=== PATIENT | male | born 1970 | race Caucasian/White ===

== ENCOUNTER 2018-05-22 14:42 | Observation (INO) | payer OTHER ==
[2018-05-22] MEDS ORDERED: levETIRAcetam 1000MG/NACL 100 ML IV ONE (14:47)
[2018-05-22] MEDS ORDERED: NS 1,000 ML IV ONE ×2 (14:47→15:58)
--- NOTE | 2018-05-22 14:51 | EDPHY ---
H & P Time Seen by Provider: 05/22/18 14:49 HPI/ROS: HPI CHIEF COMPLAINT: Seizure x2. HISTORY OF PRESENT ILLNESS: 47-year-old male presents emergency room by EMS from his office where he had a witnessed generalized tonic-clonic seizure. 911 was called he then subsequently had another 30 sec generalized tonic-clonic seizure witnessed by EMS during transport. EMS reports a normal blood glucose of 96. He is currently postictal upon arrival to the emergency room however it is noted he is also tachycardic. The patient is confused. He also struck his head during his 1st seizure and has a right forehead hematoma. EMS reports he takes Keppra. Reported that he is compliant with this. Past Medical History: Seizures and neuropathy, hypertension Past Surgical History: Noncontributory Social History: Noncontributory Family History: Noncontributory ROS REVIEW OF SYSTEMS: Review of systems and history limited due to patient's mental state. Exam Constitutional confused, postictal, obese triage nursing summary reviewed, vital signs reviewed, awake/alert. Tachycardic in the 150s to 160s. Eyes normal conjunctivae and sclera, EOMI, PERRLA. Oropharynx: Tongue laceration present. HENT hematoma right forehead, moist mucus membranes, no epistaxis, neck supple / no meningismus, no raccoon eyes. Respiratory clear to auscultation bilaterally, normal breath sounds, no respiratory distress, no wheezing. Cardiovascular tachycardic, regular rhythm, no murmur, no edema, distal pulses normal. Gastrointestinal soft, non-tender, no rebound, no guarding, normal bowel sounds, no distension, no pulsatile mass. Genitourinary no CVA tenderness. Musculoskeletal no midline vertebral tenderness, full range of motion, no calf swelling, no tenderness of extremities, no meningismus, good pulses, neurovascularly intact. Skin pink, warm, & dry, no rash, skin atraumatic. Neurologic alert or x1 moves all 4 extremities equally, motor intact, sensory intact, CN II-XII intact, normal cerebellar, normal vision, normal speech. Psychiatric normal mood/affect. Heme/Lymph/Immune no lymphadenopathy. Differential Diagnosis: Includes but is not limited to epilepsy, generalized tonic-clonic seizure, postictal state, electrolyte disturbance, infection, intracranial bleed, skull fracture Medical Decision Making: Plan for this patient who sees twice, and is noted be tachycardic, IV establishment IV fluid bolus, check basic blood work, IV Keppra 1 g, CT scan head, CT cervical spine, chest x-ray re-evaluate. Re-evaluation: EKG interpretation by me on record in [employer] system. Impression time of EKG 1453, sinus tach 158, no ST elevation. CT scan head without contrast and CT cervical spine without contrast called to me by Dr. Morales. No acute intra cranial traumatic injury. There is a right forehead hematoma. No cervical spine fracture or intracranial bleed. 1720: Patient continues to improve mentally back to baseline. No confusion. Not postictal anymore. Did bite his tongue has tongue laceration that does not need to be repaired. Additionally the patient's heart rate was in the 150s to 160s when he got here however he slowly improving with IV fluids and IV Ativan. The patient is received 2 mg IV Ativan, 1 g of Keppra, 2 L of fluid his heart rate is currently 120. Improving Patient's mental state is improving. Given the patient had 2 seizures and possibly 1 unwitnessed here in the ER but appeared to be postictal for brief period time will plan on admitting for observation. I spoke with the hospitalist service Dr. Massey who agrees to admit. EKG interpretation by me on record in [employer] system. Impression time of EKG 1724, sinus tach, 118, any signs of acute ischemia. Q-waves noted V1 V2 V3 no ST elevation. 1737: Patient reports to me that he typically gets his health care at [facility]. I have asked for medical records from [facility]. As the patient has never been here before. I did re-evaluate him at 5:37 p.m. He is resting comfortably no complaints he states he feels much better. His current heart rate is 119. He has had no further seizure activity here in the emergency room. Plan for admission he received IV Keppra Dr. Massey consulted and agrees to admit. Source: Patient, EMS Constitutional: Initial Vital Signs Temperature (C) 36.7 C 05/22/18 14:50 Heart Rate 152 H 05/22/18 14:50 Respiratory Rate 26 H 05/22/18 14:50 Blood Pressure 130/93 H 05/22/18 14:50 O2 Sat (%) 92 05/22/18 14:50 O2 Delivery Mode Nasal Cannula O2 (L/minute) 2 Allergies/Adverse Reactions: No Known Allergies Allergy (Unverified 05/22/18 14:49) Home Medications: Medication Instructions Recorded Finasteride [Proscar 5 MG (*)] 5 mg PO DAILY 05/22/18 Losartan/Hydrochlorothiazide 1 tab PO DAILY 05/22/18 [Losartan-Hctz 100-25 mg Tab] Tamsulosin HCl [Flomax 0.4 MG (*)] 0.4 mg PO HS 05/22/18 levETIRAcetam [Keppra 500 mg (*)] 500 mg PO BID 05/22/18 Medical Decision Making - Diagnostics Imaging Results: Imaging Impressions Cervical Spine CT 05/22/18 14:47 Impression: 1. Right frontal scalp hematoma. 2. Normal calvarium and brain. 2. CT Cervical Spine Without Contrast History: Trauma. Fall. Seizure. Technique: Multi-slice ultrathin single breath-hold helical CT through the neck from the skull base through the thoracic inlet without contrast. Soft tissue and bone window evaluation is performed. Sagittal and coronal reconstructions are obtained. Dose reduction techniques were utilized. Findings: There is a small amount of motion artifact on the study. Alignment is anatomic. No fracture or dislocation is identified. Disk spaces are well maintained except for moderate narrowing of the C6-C7 disk space where there are both ventral and dorsal osteophytes and erosive change on either side of the disk space. Facets are normally aligned and are intact. The skull base - C1 and C1-C2 relationships are normally aligned. There is mild degenerative change of the joint between the anterior ring of C1 and the odontoid process. The odontoid process is intact. There is no evidence of a prevertebral or epidural hematoma. The cervical thoracic junction is normally aligned. Impression: 1. Nothing acute identified. 2. Moderate degenerative disk disease at C6-C7. If there is concern for instability, then consider lateral flexion-extension views, cervical fluoroscopy and/or cervical MRI. Results called to Dr. Dsouza at 3:51 PM. General information for patients regarding this examination can be found at [email or web address]. If you have questions or comments about this report, please contact me at [phone](hospital) or [phone] (cell). Chest X-Ray 05/22/18 14:47 Impression: Moderate cardiac enlargement. No acute abnormality identified. Head CT 05/22/18 14:47 Impression: 1. Right frontal scalp hematoma. 2. Normal calvarium and brain. 2. CT Cervical Spine Without Contrast History: Trauma. Fall. Seizure. Technique: Multi-slice ultrathin single breath-hold helical CT through the neck from the skull base through the thoracic inlet without contrast. Soft tissue and bone window evaluation is performed. Sagittal and coronal reconstructions are obtained. Dose reduction techniques were utilized. Findings: There is a small amount of motion artifact on the study. Alignment is anatomic. No fracture or dislocation is identified. Disk spaces are well maintained except for moderate narrowing of the C6-C7 disk space where there are both ventral and dorsal osteophytes and erosive change on either side of the disk space. Facets are normally aligned and are intact. The skull base - C1 and C1-C2 relationships are normally aligned. There is mild degenerative change of the joint between the anterior ring of C1 and the odontoid process. The odontoid process is intact. There is no evidence of a prevertebral or epidural hematoma. The cervical thoracic junction is normally aligned. Impression: 1. Nothing acute identified. 2. Moderate degenerative disk disease at C6-C7. If there is concern for instability, then consider lateral flexion-extension views, cervical fluoroscopy and/or cervical MRI. Results called to Dr. Dsouza at 3:51 PM. General information for patients regarding this examination can be found at [email or web address]. If you have questions or comments about this report, please contact me at (hospital) or [phone] (cell). - Data Points Laboratory Results: Laboratory Results 05/22/18 14:55 05/22/18 14:55 05/22/18 05/22/18 05/22/18 14:55 14:55 14:55 WBC RBC Hgb Hct MCV MCH MCHC RDW Plt Count MPV Neut % (Auto) Lymph % (Auto) Mathews % (Auto) Eos % (Auto) Baso % (Auto) Nucleat RBC Rel Count Absolute Neuts (auto) Absolute Lymphs (auto) Absolute Monos (auto) Absolute Eos (auto) Absolute Basos (auto) Absolute Nucleated RBC Immature Gran % Immature Gran # PT INR APTT Sodium 134 mEq/L L mEq/L (135-145) Potassium 4.0 mEq/L mEq/L (3.5-5.2) Chloride 97 mEq/L mEq/L (97-110) Carbon Dioxide 15 mEq/l L mEq/l (22-31) Anion Gap 22 mEq/L H mEq/L (6-14) BUN 10 mg/dL mg/dL (7-23) Creatinine 1.0 mg/dL mg/dL (0.7-1.3) Estimated GFR > 60 Glucose 105 mg/dL H mg/dL (70-100) Calcium 9.7 mg/dL mg/dL (8.5-10.4) Magnesium 2.1 mg/dL mg/dL (1.6-2.3) Total Bilirubin 0.8 mg/dL mg/dL (0.1-1.4) Conjugated Bilirubin 0.5 mg/dL mg/dL (0.0-0.5) Unconjugated Bilirubin 0.3 mg/dL mg/dL (0.0-1.1) AST 72 IU/L H IU/L (17-59) ALT 74 IU/L H IU/L (21-72) Alkaline Phosphatase 98 IU/L IU/L (38-126) POC Troponin I 0.00 ng/mL ng/mL (0.00-0.08) Total Protein 8.6 g/dL H g/dL (6.3-8.2) Albumin 5.1 g/dL H g/dL (3.5-5.0) Lipase 119 IU/L IU/L (23-300) Ethyl Alcohol < 10 mg/dL mg/dL (0-10) 05/22/18 05/22/18 14:55 14:55 WBC 12.50 10^3/uL H 10^3/uL (3.80-9.50) RBC 5.07 10^6/uL 10^6/uL (4.40-6.38) Hgb 16.2 g/dL g/dL (13.7-17.5) Hct 46.3 % % (40.0-51.0) MCV 91.3 fL fL (81.5-99.8) MCH 32.0 pg pg (27.9-34.1) MCHC 35.0 g/dL g/dL (32.4-36.7) RDW 12.9 % % (11.5-15.2) Plt Count 279 10^3/uL 10^3/uL (150-400) MPV 8.7 fL fL (8.7-11.7) Neut % (Auto) 53.7 % % (39.3-74.2) Lymph % (Auto) 33.9 % % (15.0-45.0) Mathews % (Auto) 9.8 % % (4.5-13.0) Eos % (Auto) 1.1 % % (0.6-7.6) Baso % (Auto) 0.9 % % (0.3-1.7) Nucleat RBC Rel Count 0.0 % % (0.0-0.2) Absolute Neuts (auto) 6.70 10^3/uL H 10^3/uL (1.70-6.50) Absolute Lymphs (auto) 4.24 10^3/uL H 10^3/uL (1.00-3.00) Absolute Monos (auto) 1.23 10^3/uL H 10^3/uL (0.30-0.80) Absolute Eos (auto) 0.14 10^3/uL 10^3/uL (0.03-0.40) Absolute Basos (auto) 0.11 10^3/uL H 10^3/uL (0.02-0.10) Absolute Nucleated RBC 0.00 10^3/uL 10^3/uL (0-0.01) Immature Gran % 0.6 % % (0.0-1.1) Immature Gran # 0.08 10^3/uL 10^3/uL (0.00-0.10) PT 13.1 SEC SEC (12.0-15.0) INR 0.97 (0.83-1.16) APTT 27.0 SEC SEC (23.0-38.0) Sodium Potassium Chloride Carbon Dioxide Anion Gap BUN Creatinine Estimated GFR Glucose Calcium Magnesium Total Bilirubin Conjugated Bilirubin Unconjugated Bilirubin AST ALT Alkaline Phosphatase POC Troponin I Total Protein Albumin Lipase Ethyl Alcohol Medications Given: Acetaminophen (Tylenol) 650 mg PO Q6 PRN PRN Reason: Pain, Mild/Fever, Can Take PO Stop: 11/18/18 17:26 Last Admin: 05/22/18 17:51 Dose: 650 mg Sodium Chloride (Ns) 1,000 mls @ 75 mls/hr IV CONT DANIA Stop: 11/18/18 17:29 Last Admin: 05/22/18 20:30 Dose: 1,000 mls Levetiracetam (Keppra) 750 mg PO BID DANIA Stop: 11/18/18 20:59 Last Admin: 05/22/18 20:54 Dose: 750 mg Melatonin (Melatonin) 3 mg PO HS DANIA Stop: 11/18/18 20:59 Last Admin: 05/22/18 20:55 Dose: 3 mg Tamsulosin HCl (Flomax) 0.4 mg PO HS DANIA Stop: 11/18/18 20:59 Last Admin: 05/22/18 20:55 Dose: 0.4 mg Discontinued Medications Sodium Chloride (Ns) 1,000 mls @ 0 mls/hr IV EDNOW ONE; Wide Open PRN Reason: Protocol Stop: 05/22/18 14:48 Last Admin: 05/22/18 15:07 Dose: 1,000 mls Levetiracetam (Keppra (Premix)) 100 mls @ 400 mls/hr IV EDNOW ONE Stop: 05/22/18 15:01 Last Admin: 05/22/18 15:15 Dose: 100 mls Sodium Chloride (Ns) 1,000 mls @ 0 mls/hr IV ONCE ONE PRN Reason: Wide Open Stop: 05/22/18 15:59 Last Admin: 05/22/18 16:40 Dose: 1,000 mls Lorazepam (Ativan Injection) 1 mg IVP EDNOW ONE Stop: 05/22/18 15:07 Last Admin: 05/22/18 15:12 Dose: 1 mg Lorazepam (Ativan Injection) 1 mg IVP EDNOW ONE Stop: 05/22/18 15:59 Last Admin: 05/22/18 19:54 Dose: Not Given Point of Care Test Results: Chemistry 05/22/18 14:55 POC Troponin I 0.00 ng/mL ng/mL (0.00-0.08) Departure - Departure Disposition: [facility] Acute Clinical Impression: Seizure Condition: Fair
[2018-05-22] MEDS ORDERED: LORazepam 2 MG/ML INJ ONE (15:04)
[2018-05-22] MEDS ORDERED: LORazepam 2 MG/ML INJ IVP ONE ×2 (15:06→15:58)
[2018-05-22 15:11] LABS: PLATELET COUNT 279 10^3/uL (150-400)
[2018-05-22 15:21] LABS: INR 0.97 (0.83-1.16); PROTIME(PATIENT) 13.1 SEC (12.0-15.0)
[2018-05-22] MEDS ORDERED: ONDANSETRON 4 MG/2 ML VIAL IVP PRN (17:27)
[2018-05-22] MEDS ORDERED: ACETAMINOPHEN 325 MG TAB PO PRN (17:27)
[2018-05-22] MEDS ORDERED: NS 1,000 ML IV SCH (17:30)
--- NOTE | 2018-05-22 19:08 | PDGENHP ---
History and Physical History and Physical: CC: Multiple seizures today and a seizure patient HISTORY: This patient comes into the ER today after 2 seizures at work and had a 3rd in the ER. He has longstanding epilepsy and is on Keppra for that. Initially he was fairly postictal and unable to give history in the ER but gradual couple was able to give history. He states he has taking his Keppra on schedule and took it this morning last night. He had seizures in 2014 when he had his 1st but has been on Keppra since without seizures. He states that he does drink alcohol about 2 times per week and had 3-4 beers last night which were pt. Has never had alcohol withdrawal. No symptoms to suggest of withdrawal at this point. No street drugs. No recent fevers. Has been sleeping well recently. Has been eating and drinking okay no nausea or vomiting. Did have a mild cold without fever chest pain or shortness of breath just recently but the symptoms are completely resolved. He took some cold medicine during that time. 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 I have reviewed the list and ordered appropriate medicines. PHYSICAL EXAMINATION: Vital Signs: Initially tachycardic at 150 but slowing down nicely, otherwise no fever and stable vitals Education Administrative Assistant: Sinus tachycardia in ER Examination: General: alert, very mildly postictal now otherwise oriented, good mentation, relaxed; he is quite obese Skin: warm, dry, good color, no rash HEENT: He has a very large area of abrasion of skin on the forehead, and a slight bit of blood inside his mouth that is now dried, but I do not see a definite tongue lac, otherwise normal Neck: no mass or jvd Resps: relaxed Lungs: clear breath sounds Heart: regular, no murmur Abdomen: soft, nondistended, nontender, +BS, no mass Upper Extremities: normal Lower Extremities: no edema, warm No Bleeding or bruising Neurologic: normal speech/language, normal therapeutic activities services worker, no focal weakness IV site: looks normal LABORATORY DATA: White blood cell count 45990 Sodium 134, CO2 at 15 with anion gap 22 Normal renal numbers Mild elevation of transaminases in the 70s normal bilirubin Alcohol level undetectable RADIOLOGY STUDIES: I reviewed chest x-ray images from the ER today and I see evidence of an old spine surgery with hardware but no acute cardiopulmonary abnormalities I reviewed images from CT scan of head and neck in the ER today, there is only evidence of some hematoma of the scalp at the forehead no other abnormalities 12 LEAD EKG: Sinus tachycardia otherwise unremarkable ASSESSMENT: * Multiple seizures today in a patient with longstanding seizure disorder on Keppra * Metabolic acidosis due to seizures * Injuries with today's seizure appear to be limited to abrasion on the skin of his forehead * Chronic alcohol abuse with moderately large intakes including last night * Mild hepatic transaminase elevations in 70s, with no history of prior liver abnormalities -differential diagnosis includes hepatic steatosis, viral hepatitis which could be from his recent cold illness or from hepatitis B or C, or other causes -from the ratio of the AST and ALT I do not think this is a alcoholic hepatitis Seizures could have been caused by alcohol intake, inadequate dose of Keppra in this very large man, but no other definite triggers identified PLANS: * He was given Keppra in the ER as well as some Ativan; I am increasing his twice daily dose from 500->750 * Will observe overnight * Neurology consult in the morning * If he starts seizing again will give more Ativan and will need to consider possible transfer to an outside center * Hepatitis serologies ordered * Will order abdominal ultrasound * He is counseled that alcohol is a bad idea given his seizure disorder and his liver issues and he should strongly consider doing what he needs to do to stop alcohol or at least minimize 10 no more than 1 drink on any given day * he will need close follow-up with his primary care physician for all of the above issues * No driving until cleared by Neurology I have reviewed the patient's case in detail with Dr. Marcelo Garcia
[2018-05-22] MEDS: levETIRAcetam 250 MG TAB PO SCH (20:54)
[2018-05-22] MEDS ORDERED: TAMSULOSIN HCL 0.4 MG CAP PO SCH (21:00)
[2018-05-22] MEDS ORDERED: MELATONIN 3 MG TAB PO SCH (21:00)
--- NOTE | 2018-05-22 21:57 | CPEKG ---
Test Reason : OPEN Blood Pressure : / mmHG Vent. Rate : 118 BPM Atrial Rate : 118 BPM P-R Int : 169 ms QRS Dur : 079 ms QT Int : 327 ms P-R-T Axes : 058 -08 008 degrees QTc Int : 459 ms Sinus tachycardia Anterior infarct, old Confirmed by Marcelo Garcia ([id number]) on 05/22/2018 9:56:58 PM Referred By: Confirmed By:Marcelo Garcia
--- NOTE | 2018-05-22 21:57 | CPEKG ---
Test Reason : OPEN Blood Pressure : / mmHG Vent. Rate : 158 BPM Atrial Rate : 159 BPM P-R Int : 120 ms QRS Dur : 079 ms QT Int : 348 ms P-R-T Axes : 000 -03 040 degrees QTc Int : 565 ms Sinus tachycardia Probable anterior infarct, old Prolonged QT interval Confirmed by Marcelo Garcia ([id number]) on 05/22/2018 9:56:58 PM Referred By: Confirmed By:Marcelo Garcia
[2018-05-22] MEDS ORDERED: IBUPROFEN 200 MG TAB PO ONE (23:47)
[2018-05-23] MEDS ORDERED: LOSARTAN/HCTZ 50/12.5 1 TAB PO SCH (09:00)
[2018-05-23] MEDS ORDERED: FINASTERIDE 5 MG TAB PO SCH (09:00)
[2018-05-23] MEDS: levETIRAcetam 250 MG TAB PO SCH (09:11)
[2018-05-23 12:02] VITALS: BP 128/79
--- NOTE | 2018-05-23 12:13 | GCON ---
NEUROLOGIC CONSULTATION REFERRING PHYSICIAN: Dr. Massey HISTORY: The patient is a 47-year-old whom I am asked to see in neurologic consultation regarding se izures. He reports that he had his first seizure in October of 2014, and no cause was identified, with unremarkable brain imaging and EEG. He has been on Keppra since that time. He apparently had a seco nd seizure in January of 2015 of no known cause, which was, again, a generalized convulsion and no specific explanation. He is typically compliant with his medication, although he intermittently drin ks alcohol and did have some alcohol prior to this. He had been doing well until yesterday when he h ad a seizure. He was at work and had a generalized convulsion, and then had a second generalized con vulsion about 30 minutes later. He has subsequently been given a load of Keppra with a gram, and the n changed dosing to 750 mg b.i.d. He feels back to his baseline, and his family agrees. He had an a brasion to his head, with a negative head CT. REVIEW OF SYSTEMS: Unremarkable, except for that noted above. He has an old residual weakness of sourav th legs, particularly the left after his original seizure where he had a fracture and cauda equina in [facility], by his report. 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 FAMILY HISTORY: Negative for seizure. MEDICATIONS: At home, he was taking Proscar, as well as Keppra 500 mg b.i.d., Flomax, losartan. Now the Keppra has been changed to 750 b.i.d. ALLERGIES: No allergies. PHYSICAL EXAMINATION: VITAL SIGNS: Blood pressure 130/89, pulse of 84, respirations 20, temperature 36.6. GENERAL: He is an overweight man, in no acute distress. He has an abrasion to his forehead. NEUROLOGIC: He is alert and fully oriented, with no cognitive impairment. Pupils 3 mm and reactiv e. Extraocular movements intact. Normal facial sensation and strength. Motor exam: Normal muscle bulk and tone in the upper extremities, but in the lower extremities, he has no dorsiflexion, or trac e on the left. Decreased tone in the left leg with the weakness, left more than right leg, which is not new, and variable sensory loss in the lower extremities. As noted, the head CT was unremarkable. LABORATORY DATA: His initial laboratory study on tox screen was negative. Urinalysis unremarkable. Chemistry yesterday showed a bicarbonate of 15, but is now bicarbonate of 22 this morning, and other oshea unremarkable electrolytes. The mild elevation of AST and ALT are now resolved back to normal fr om the low 70s now to 51 and 59 for the AST and ALT, respectively. Normal INR. Initial white count was 12,000, normal hematocrit. IMPRESSION: In all probability, the patient had 2 unprovoked generalized tonic-clonic seizures yeste rday, without medical noncompliance, but did have some alcohol prior to this, and that might have low ered his threshold enough to precipitate this. He really should cease alcohol use in the setting of seizures. He understands he is not to drive for 3 months, and he should follow up with [facility] for ongoing care, which is where he has been followed for many years as well. He said he will switch his medication to taking the Keppra 500 mg 3 times a day until his dose is more formally royal ed, but a total of 1500 mg per day and probably needs to have levels established. He does not requir e an EEG at this point or more imaging beyond his head CT, which he has had done several times in the past, he says. He is safe for discharge from my standpoint. /[id number]/MODL
--- NOTE | 2018-05-23 15:35 | ASMTLACE ---
LACE Length of stay for Answers: Less than 1 day current admission Acuity / Level of Answers: No Care: Did the patient have an inpatient admission? Comorbidities - select Answers: Other Notes: epilepsy all that apply # of Emergency department Answers: 1-2 visits in the last 6 months Social determinants Answers: History of substance abuse (ETOH, street drugs, prescription drugs, etc.) Score: 5 Date Signed: 05/23/2018 03:34 PM Electronically Signed By:Susan Ng
--- NOTE | 2018-05-23 15:39 | ASDISCHSUM ---
Discharge Information Plan Status:Home with No Needs Medically Cleared to Leave: Discharge Date:05/23/2018 03:04 PM CM D/C Disposition:Home, Routine, Self-Care ADT D/C Disposition:Home, Routine, Self-Care Projected Discharge Date:05/23/2018 12:00 AM Transportation at D/C:Family Discharge Delay Reason: Follow-Up Date:05/23/2018 12:00 AM Discharge Slot: Final Diagnosis:seizures Placement Information Patient Contact Information Contact Name:SANDRA Relationship: Address: Home Phone: Work Phone: City: Alternate Phone: State/Zip Code: Email: Financial Information [facility] Desc[facility] Primary Plan Number:[id number] Secondary Plan Desc: Secondary Plan Number: Assessment Information LACE LACE Length of stay for Answers: Less than 1 day current admission Acuity / Level of Answers: No Care: Did the patient have an inpatient admission? Comorbidities - select Answers: Other Notes: epilepsy all that apply # of Emergency department Answers: 1-2 visits in the last 6 months Social determinants Answers: History of substance abuse (ETOH, street drugs, prescription drugs, etc.) Score: 5 Date Signed: 05/23/2018 03:34 PM Electronically Signed By:Susan Ng Case Management Discharge Plan Note Case Management Discharge Discharge Order Complete? Answers: Yes Patient to Obtain Answers: Independently Medications Transportation Arranged Answers: Family/Friends Transport will Pick (Date 05/23/2018 12:00 AM & Time) Family Notified Answers: Yes Notes: in the room Discharge Comments Notes: Spoke with pt in the room regarding ETOH intake. Pt stated he was certain he would be able to cut back to 1 drink per occasion, and assured CM that he only drinks socially, stating that he has no concern for a "drinking problem". CM stated that ETOH does not mix well with pt's seizure medications. CM offered to provide resources if needed. Pt declined but confirmed understanding that he could reach out to PCP if he had difficulty. Pt to discharge independently. No CM need identified at this time. Date Signed: 05/23/2018 03:38 PM Electronically Signed By:Susan Ng Intervention Information
--- NOTE | 2018-05-23 20:06 | GDS ---
SERVICE: [facility] hospitalist. CONSULTS: Neurology, Dr. Rojas. PROCEDURES: 1. Abdominal ultrasound on the day of discharge showed steatosis, diffusely enlarged liver, no obvious mass lesion, but study was limited due to body habitus. 2. Head and neck CT on the day of admission showed a right frontal scalp hematoma. No evidence of intracranial bleed or other abnormality. Of note, a fluid level in the posterior left maxillary sinus and a large retention cyst in the right maxillary sinus neck with degenerative disk disease at C6 and C7. No fracture or acute traumatic changes noted. 3. Chest x-ray showed a prominent cardiac silhouette but no acute abnormalities. Instrumentation hardware noted in the lower thoracic spine. HISTORY AND PHYSICAL: Please see previously dictated note by Dr. Massey. ADMISSION DIAGNOSES 05/22/2018: 1. Seizures, known seizure disorder 2. Metabolic acidosis. 3. Transaminitis. 4. Morbid obesity. DISCHARGE DIAGNOSES 05/23/2018: 1. Seizures, known seizure disorder 2. Metabolic acidosis, resolved. 3. Transaminitis, resolved. 4. Morbid obesity. HOSPITAL COURSE: The patient was brought to the emergency department after having several seizures. He has a known seizure disorder but says he had not had seizures for several years prior. He was admitted for observation, further evaluation, and neurology consult. He was chronically on Keppra and followed by Dr. Mancilla, [facility]. In the ER he was loaded with IV Keppra and oral dose increased. He had brain imaging as above. No further acute neurological events were noted overnight. He had a mild transaminitis and metabolic acidosis on admission, both of which resolved. Appreciate Dr. Rojas assisting in the care of the patient. He did not recommend any further studies at this time, advised him not to drive for 3 months, advised him to not drink alcohol at all, recommended increased dose of Keppra, and to follow up with his neurologist. These instructions were reviewed with him at length by Dr. Rojas and also by myself. He denied any pain, nausea, vomiting, headache on the day of discharge. He was eating and ambulating without difficulty. He has an abrasion on his forehead and bruising around his right eye but denied neck pain/headache/n/v. He had 2 people in the room when I saw him that confirmed he was 'back to baseline' and heard all instructions also. DISCHARGE MEDICATIONS: Keppra to be increased to 750 mg b.i.d. He should continue with Proscar, Flomax, and losartan HCTZ. DISCHARGE INSTRUCTIONS: He was reminded to not drive for 3 months. He was reminded to not drink any alcohol. He was instructed on adequate sleep (says that he has been screened several times for obstructive sleep apnea and does not have this). Seizure triggers in general were reviewed. He should follow up with his primary care provider, Dr. Nugent, at [facility] and also his neurologist, Dr. Mancilla at [facility] within the next week. If at any time he has any focal neurological symptoms, recurrent seizures, or other concerns, he should return immediately to the emergency department for further evaluation. Otherwise, he should follow up as above. Copy requested to: Dr. Nugent [facility] Dr. Mancilla [facility] /[id number]
== END 2018-05-23 15:04 | disposition home or self-care (01) ==
LOC: F3N 18:31
PROVIDERS: ADMIT Internal Medicine; ATTEND Internal Medicine
DX: G40.409 Other generalized epilepsy and epileptic syndromes, not intractable, without status epilepticus (principal); E87.2 Acidosis; R74.0 Nonspecific elevation of levels of transaminase and lactic acid dehydrogenase [LDH]; E66.01 Morbid (severe) obesity due to excess calories; E86.9 Volume depletion, unspecified
CPT/HCPCS: 70450; 71045; 72125; 76705; 93005; 96361; 96374; 96375; 99285; G0378; 80305; 84484-ER; G0480; J1953; J2060